=== PATIENT | male | born 1975 | race Caucasian/White ===

== ENCOUNTER 2016-08-22 12:33 | Emergency (ER) | payer OTHER, BC ==
[~2016-08-22] VITALS: Ht 172.7 cm; Wt 101.7 kg
[2016-08-22] MEDS ORDERED: MOTRIN800 MG PO (15:43)
[2016-08-22 15:57] VITALS: BP 150/102
== END 2016-08-22 16:00 | disposition home or self-care (01) ==
LOC: EME 12:33
PROC: 3E0234Z Introduction of Serum, Toxoid and Vaccine into Muscle, Percutaneous Approach (ICD-10-PCS; principal; 2016-08-22)
DX: S60.221A Contusion of right hand, initial encounter (principal); V49.40XA Driver injured in collision with unspecified motor vehicles in traffic accident, initial encounter; I10 Essential (primary) hypertension; Z23 Encounter for immunization
CPT/HCPCS: 73130; 99281; 99284